=== PATIENT | female | born 1970 | race Caucasian/White ===

== ENCOUNTER 2018-03-17 22:46 | Emergency (ER) | payer MEDICAID ==
[2018-03-17] MEDS ORDERED: DEXAMETHASONE 10 MG/ML VIAL PO STA (23:04)
[2018-03-17] MEDS ORDERED: CYCLOBENZAPRINE 10 MG TABLET PO STA (23:04)
[2018-03-17] MEDS ORDERED: traMADol 50 MG TABLET PO STA (23:04)
--- NOTE | 2018-03-17 23:51 | ED Physician Documentation ---
PD HPI NECK PAIN - Stated complaint Stated Complaint: NECK/LT ARM PX - Chief complaint Chief Complaint: Ext Problem - History obtained from History obtained from: Patient - History of Present Illness Timing - onset: Today Timing - details: Gradual onset, Still present Location: Mid, Lower, Left Quality: Pain, Spasm, Similar to prior episodes Worsened by: Movement, Lifting Contributing factors: Lifting Similar symptoms before: Work up / diagnostics, Treatment Recently seen: Not recently seen - Additional information Additional information: Patient is a 47 year old female who is presenting to the emergency department for neck pain. patient states that she has recurrent neck pain that radiates down her arm. Patient gets injections for it. patient was helping her daughter move when she tried to lift something and caused pain in her left neck and left shoulder. 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 HEENT: Tonsil/Adenoidectomy - Present Medications Home Medications: Ambulatory Orders Medication Instructions Recorded Confirmed Cyclobenzaprine [Flexeril] 10 mg PO TID PRN #10 tablet 03/17/18 Lidocaine Patch 5% [Lidoderm Patch] 1 each TOP DAILY #14 patch 03/17/18 - Allergies Allergies/Adverse Reactions: Allergies Allergy/AdvReac Type Severity Reaction Status Date / Time No Known Drug Allergies Allergy Verified 03/17/18 22:59 - Social History Does the pt smoke?: Yes Smoking Status: Current every day smoker Does the pt drink ETOH?: Yes Does the pt have substance abuse?: No - Immunizations Immunizations are current?: Yes - POLST Patient has POLST: No PD ED PE NORMAL - Vitals Vital signs reviewed: Yes - General General: Alert and oriented X 3 - HEENT HEENT: Atraumatic - Cardiac Cardiac: RRR - Respiratory Respiratory: No respiratory distress - Abdomen Abdomen: Soft - Derm Derm: Normal color - Neuro Neuro: Alert and oriented X 3, No motor deficit, Normal speech Eye Opening: Spontaneous Motor: Obeys Commands Verbal: Oriented GCS Score: 15 PD ED PE EXPANDED - Neck Neck: Soft tissue TTP (left sided paraspinal tenderness) - Back Back: Soft tissue tenderness (tenderness to palpation of left trapezius region) Results - Vitals Vitals: Vital Signs - 24 hr 03/17/18 22:50 Temperature 36.5 C Heart Rate 90 Respiratory 16 Rate Blood Pressure 150/88 H O2 Saturation 97 Oxygen O2 Source Room air PD MEDICAL DECISION MAKING - ED course Complexity details: reviewed old records, reviewed results, re-evaluated patient, considered differential, d/w patient ED course: patient was seen and examined at bedside. Patient had no traumatic injuries or neurological deficits. patient was treated with toradol, decadron and flexeril. no imaging was indicated at this time and patient was stable for discharge with outpatient follow up. - Sepsis Event Vital Signs: Vital Signs - 24 hr 03/17/18 22:50 Temperature 36.5 C Heart Rate 90 Respiratory 16 Rate Blood Pressure 150/88 H O2 Saturation 97 Oxygen O2 Source Room air Departure - Departure Disposition: 01 Home, Self Care Clinical Impression: Neck muscle strain Condition: Good Instructions: ED Neck Pain No Trauma Follow-Up: primary,care provider [Other] - As Needed Prescriptions: Cyclobenzaprine [Flexeril] 10 mg PO TID PRN #10 tablet PRN Reason: Spasms Lidocaine Patch 5% [Lidoderm Patch] 1 each TOP DAILY #14 patch Comments: Your symptoms today are likely secondary to muscle strain. you can take motrin and tylenol as needed for pain and apply ice and lidoderm patch. you can take the flexeril as needed for spasm. You should follow up with your doctor if your symptoms become more constant. You may return to the emergency department at any time for new, worsening or uncontrollable symptoms.
[2018-03-18 00:03] VITALS: BP 136/76
== END 2018-03-18 00:03 | disposition home or self-care (01) ==
LOC: ED 22:46
DX: I10 Essential (primary) hypertension (principal); J44.9 Chronic obstructive pulmonary disease, unspecified; F17.200 Nicotine dependence, unspecified, uncomplicated; S16.1XXA Strain of muscle, fascia and tendon at neck level, initial encounter; X50.0XXA Overexertion from strenuous movement or load, initial encounter; X50.9XXA Other and unspecified overexertion or strenuous movements or postures, initial encounter; Y93.89 Activity, other specified
CPT/HCPCS: 99283; A9270